=== PATIENT | female | born 1995 | race Caucasian/White ===

== ENCOUNTER 2023-03-17 01:28 | Emergency (ER) | payer OTHER ==
[~2023-03-17] VITALS: Ht 157.5 cm; Wt 70.8 kg
[2023-03-17 01:28] VITALS: BP 102/58; PULSE 89; RESP 18; TEMP 97.7; O2SAT 98
--- NOTE | 2023-03-17 01:28 | NUR ---
TO EUGENIO GAITAN P, FOR PREBOOK
--- NOTE | 2023-03-17 01:50 | NUR ---
SEEN AND EXAMINED BY JONNY
[2023-03-17 02:08] VITALS: BP 102/58; PULSE 89; RESP 18; TEMP 97.7; O2SAT 98
--- NOTE | 2023-03-17 02:09 | NUR ---
Patient discharged with v/s stable. Written and verbal after care instructions given and explained. Patient verbalized understanding. Accompanied by [facility] in custody. All questions addressed prior to discharge. Advised to follow up with PMD.
== END 2023-03-17 02:09 ==
LOC: MED 01:28
DX: R04.0 Epistaxis (principal); V49.88XA Car occupant (driver) (passenger) injured in other specified transport accidents, initial encounter; Y93.89 Activity, other specified; Y92.89 Other specified places as the place of occurrence of the external cause; Y99.8 Other external cause status
CPT/HCPCS: 99283

== ENCOUNTER 2024-05-09 19:54 | Emergency (ER) | payer SELFPAY ==
[~2024-05-09] VITALS: Ht 157.5 cm; Wt 81.6 kg
[2024-05-09 20:17] VITALS: BP 135/80; PULSE 76; RESP 14; TEMP 97.3; O2SAT 99
[2024-05-09 20:30] VITALS: BP 135/80; PULSE 76; RESP 14; TEMP 97.3
[2024-05-09 20:52] VITALS: O2SAT 98
[2024-05-09 21:00] VITALS: O2SAT 98
== END 2024-05-09 21:30 | disposition left against medical advice (07) ==
LOC: MED 19:54
DX: R44.0 Auditory hallucinations (principal); R44.1 Visual hallucinations
CPT/HCPCS: 99281; 99283